=== PATIENT | male | born 1945 | race Caucasian/White ===

== ENCOUNTER 2021-05-27 16:41 | Inpatient (IN) ==
[2021-05-27] MEDS ORDERED: Albuterol/Ipratropium NEB.SOL (2.5/0.5 MG) 3 ML NEB.SOLN INH ONE ×2 (17:29→19:06)
[2021-05-27] MEDS ORDERED: Magnesium Sulfate 2 gm BAG 2 GM/50 ML BAG IVPB ONE (17:29)
[2021-05-27 17:44] LABS: ABS Lymphocytes 0.2 10^3/ul (1.0-4.8); ABS Monocytes 0.4 10^3/ul (0-0.8); ABS Neutrophils 13.3 10^3/ul (1.5-7.7); Hematocrit 45 % (42-52); Hemoglobin 14.8 g/dL (14.0-18.0); Lymphocyte % 1.7 %; Mean Corpuscular HGB Conc 33 g/dL (31-36); Mean Corpuscular Hemoglobin 32 pg (27-31); Mean Corpuscular Volume 96 fL (80-94); Mean Platelet Volume 8.1 fL (7.4-10.4); Platelet Count 217 10^3/uL (150-450); Red Blood Count 4.66 10^6 /uL (4.18-5.48); Red Cell Distribution Width 15 % (10-15); White Blood Count 13.9 10^3/uL (3.5-10.8)
[2021-05-27 18:03] LABS: Troponin I 0.02 ng/mL (<0.03)
[2021-05-27 18:05] LABS: C Reactive Protein 3.25 mg/L (<8.01); EGFR African American 96.1 (>60); EGFR Non-African American 79.4 (>60); Potassium 3.7 mmol/L (3.5-5.0)
[2021-05-27] MEDS ORDERED: Albuterol HFA INHALER 8 gm MDI INH PRN (22:01)
[2021-05-27] MEDS ORDERED: SPIRIVA Respimat (tiotropium) 2.5 mcg/inh Inhaler INH SCH (23:00)
[2021-05-27 23:04] LABS: Rapid COVID-19 Molecular Undetected (Undetected)
[2021-05-28] MEDS ORDERED: AZITHROMYCIN IVPB ONE (00:30)
[2021-05-28] MEDS ORDERED: NS 0.9% IVPB ONE (00:30)
[2021-05-28] MEDS ORDERED: SPIRIVA Respimat (tiotropium) 2.5 mcg/inh Inhaler INH SCH (01:00)
[2021-05-28] MEDS: Albuterol/Ipratropium NEB.SOL (2.5/0.5 MG) 3 ML NEB.SOLN INH SCH ×4 (01:24→19:01)
[2021-05-28] MEDS: Enoxaparin 40 MG/0.4 ML SYR SUBCUT SCH ×2 (01:25→22:33)
[2021-05-28 05:57] LABS: ABS Lymphocytes 0.3 10^3/ul (1.0-4.8); ABS Monocytes 0.6 10^3/ul (0-0.8); ABS Neutrophils 10.3 10^3/ul (1.5-7.7); Eosinophil % 0.2 %; Hematocrit 41 % (42-52); Hemoglobin 13.8 g/dL (14.0-18.0); Lymphocyte % 2.4 %; Mean Corpuscular HGB Conc 33 g/dL (31-36); Mean Corpuscular Hemoglobin 32 pg (27-31); Mean Corpuscular Volume 96 fL (80-94); Mean Platelet Volume 7.9 fL (7.4-10.4); Platelet Count 186 10^3/uL (150-450); Red Blood Count 4.32 10^6 /uL (4.18-5.48); Red Cell Distribution Width 15 % (10-15); White Blood Count 11.2 10^3/uL (3.5-10.8)
[2021-05-28 06:18] LABS: Calcium 8.5 mg/dL (8.6-10.3); EGFR African American 86.4 (>60); EGFR Non-African American 71.4 (>60); Magnesium 2.5 mg/dL (1.9-2.7); Potassium 3.6 mmol/L (3.5-5.0)
[2021-05-28] MEDS ORDERED: Potassium Chlor 20 meq TAB.ER PO ONE (08:08)
[2021-05-28] MEDS: methylPREDNISolone SOD 40 mg/ml 1 ml VIAL IV SCH ×2 (15:13→22:33)
[2021-05-28] MEDS ORDERED: Perflutren Lipid Microsphere 3 ML VIAL ONE (15:15)
[2021-05-28] MEDS: Mometasone/Formoter 200/5 MDI INH SCH (19:01)
[2021-05-29] MEDS ORDERED: cefTRIAXone 1 gm/50 mL NS BAG 1 GM/50 ML BAG IVPB SCH
[2021-05-29] MEDS: Albuterol/Ipratropium NEB.SOL (2.5/0.5 MG) 3 ML NEB.SOLN INH SCH ×2 (00:58→09:53)
[2021-05-29 07:05] LABS: Hematocrit 41 % (42-52); Hemoglobin 13.9 g/dL (14.0-18.0); Mean Corpuscular HGB Conc 34 g/dL (31-36); Mean Corpuscular Hemoglobin 33 pg (27-31); Mean Corpuscular Volume 96 fL (80-94); Mean Platelet Volume 8.2 fL (7.4-10.4); Platelet Count 197 10^3/uL (150-450); Red Blood Count 4.27 10^6 /uL (4.18-5.48); Red Cell Distribution Width 15 % (10-15); White Blood Count 10.4 10^3/uL (3.5-10.8)
[2021-05-29 07:21] LABS: Calcium 8.5 mg/dL (8.6-10.3); EGFR African American 101.1 (>60); EGFR Non-African American 83.6 (>60); Potassium 4.6 mmol/L (3.5-5.0)
[2021-05-29] MEDS: methylPREDNISolone SOD 40 mg/ml 1 ml VIAL IV SCH ×2 (08:36→15:00)
[2021-05-29] MEDS: Mometasone/Formoter 200/5 MDI INH SCH (09:49)
[2021-05-29] MEDS ORDERED: Albuterol/Ipratropium NEB.SOL (2.5/0.5 MG) 3 ML NEB.SOLN INH PRN (09:58)
[2021-05-29 12:01] VITALS: BP 134/67
== END 2021-05-29 16:20 | disposition other institution (70) | DRG 190 ==
LOC: ED 16:41 → EDHOLD 16:41 → SUATTDRO 21:53 → MED 21:54
PROVIDERS: ADMIT Student in an Organized Health Care Education/Training Program; ATTEND Internal Medicine

== ENCOUNTER 2021-12-08 04:52 | Inpatient (IN) ==
[2021-12-08] MEDS ORDERED: Dexamethasone IV 4 MG/ML 5 ML VIAL (20 MG) IVPB ONE (05:23)
[2021-12-08] MEDS ORDERED: Albuterol/Ipratropium NEB.SOL (2.5/0.5 MG) 3 ML NEB.SOLN INH ONE ×2 (05:23→08:56)
[2021-12-08 05:54] LABS: ABS Lymphocytes 0.4 10^3/ul (1.0-4.8); ABS Monocytes 1.4 10^3/ul (0-0.8); ABS Neutrophils 5.5 10^3/ul (1.5-7.7); Eosinophil % 0.1 %; Hematocrit 46 % (42-52); Hemoglobin 15.7 g/dL (14.0-18.0); Lymphocyte % 5.4 %; Mean Corpuscular HGB Conc 34 g/dL (31-36); Mean Corpuscular Hemoglobin 32 pg (27-31); Mean Corpuscular Volume 93 fL (80-94); Mean Platelet Volume 8.2 fL (7.4-10.4); Nucleated Red Blood Cells % 0.1; Platelet Count 134 10^3/uL (150-450); Red Cell Distribution Width 15 % (10-15); White Blood Count 7.3 10^3/uL (3.5-10.8)
[2021-12-08 06:38] LABS: Albumin/Globulin Ratio 2.7 (1-3); Calcium 8.5 mg/dL (8.6-10.3); Globulin 1.5 g/dL (2-4); Total Bilirubin 0.4 mg/dL (0.2-1.0); Total Protein 5.5 g/dL (6.4-8.9); eGFR CKD-EPI 86.7 (>60)
[2021-12-08] MEDS ORDERED: Albuterol 0.5% CONC CONTINUOUS NEB.SOL 5 mg/ml 20 ml BOT INH ONE (06:44)
[2021-12-08 07:18] LABS: High Sensitivity Troponin 1 Hr 10 pg/mL (<20)
[2021-12-08] MEDS ORDERED: cefTRIAXone 1 gm/50 mL D5W 1 GM/50 ML BAG IV ONE (07:46)
[2021-12-08 08:21] LABS: Venous Bicarbonate HCO3 26.9 mmol/L (24-28)
[2021-12-08] MEDS ORDERED: Azelastine/Fluticasone 137-50 MCG BTL (NF) BOTH NARES SCH (10:00)
[2021-12-08] MEDS ORDERED: Multivitamins/Minera Areds(NF) CAP PO SCH (10:00)
[2021-12-08] MEDS: Enoxaparin 40 MG/0.4 ML SYR SUBCUT SCH (11:05)
[2021-12-08] MEDS: methylPREDNISolone SOD 40 mg/ml 1 ml VIAL IV SCH ×2 (11:06→17:54)
[2021-12-08] MEDS: Albuterol 2.5mg/3 ml (0.083%) NEB.SOLN INH PRN (13:31)
[2021-12-08] MEDS: Albuterol/Ipratropium NEB.SOL (2.5/0.5 MG) 3 ML NEB.SOLN INH SCH ×3 (14:20→22:20)
[2021-12-08] MEDS: Budesonide NEB 0.5 MG/2 ML NEB.SOLN INH SCH (19:44)
[2021-12-08] MEDS: NF:Azelastine/Fluticasone 137-50 MCG BTL (NF) BOTH NARES SCH (22:29)
[2021-12-08 23:29] LABS: Urine Appearance Cloudy; Urine Bilirubin Negative (Negative); Urine Blood Negative (Negative); Urine Color Yellow; Urine Glucose 3+(>=500 mg/dL) (Negative); Urine Ketones Trace (Negative); Urine Nitrite Negative (Negative); Urine Protein Negative (Negative); Urine Specific Gravity 1.021 (1.002-1.030); Urine Urobilinogen Negative (Negative)
[2021-12-09] MEDS: methylPREDNISolone SOD 40 mg/ml 1 ml VIAL IV SCH (01:43)
[2021-12-09 07:11] LABS: ABS Lymphocytes 0.3 10^3/ul (1.0-4.8); ABS Monocytes 0.4 10^3/ul (0-0.8); ABS Neutrophils 4.8 10^3/ul (1.5-7.7); Hematocrit 42 % (42-52); Hemoglobin 14.2 g/dL (14.0-18.0); Lymphocyte % 5.5 %; Mean Corpuscular HGB Conc 34 g/dL (31-36); Mean Corpuscular Hemoglobin 32 pg (27-31); Mean Corpuscular Volume 93 fL (80-94); Mean Platelet Volume 8.7 fL (7.4-10.4); Nucleated Red Blood Cells % 0.1; Platelet Count 125 10^3/uL (150-450); Red Blood Count 4.47 10^6 /uL (4.18-5.48); Red Cell Distribution Width 15 % (10-15); White Blood Count 5.5 10^3/uL (3.5-10.8)
[2021-12-09 07:22] LABS: Anion Gap 7 mmol/L (2-11); Blood Urea Nitrogen 28 mg/dL (6-24); CO2 Carbon Dioxide 28 mmol/L (22-32); Calcium 8.6 mg/dL (8.6-10.3); Chloride 105 mmol/L (101-111); Glucose 130 mg/dL (70-100); Magnesium 2.1 mg/dL (1.9-2.7); Potassium 4.3 mmol/L (3.5-5.0); Sodium 140 mmol/L (135-145)
[2021-12-09] MEDS: Budesonide NEB 0.5 MG/2 ML NEB.SOLN INH SCH ×2 (08:11→20:22)
[2021-12-09] MEDS: Albuterol/Ipratropium NEB.SOL (2.5/0.5 MG) 3 ML NEB.SOLN INH SCH ×3 (08:12→15:53)
[2021-12-09] MEDS: cefTRIAXone 1 gm/50 mL D5W 1 GM/50 ML BAG IV SCH (08:28)
[2021-12-09] MEDS: Enoxaparin 40 MG/0.4 ML SYR SUBCUT SCH (08:37)
[2021-12-09] MEDS: NF:Azelastine/Fluticasone 137-50 MCG BTL (NF) BOTH NARES SCH ×2 (13:17→20:09)
[2021-12-09] MEDS: NF: Multivitamins/Minera Areds(NF) CAP PO SCH (13:17)
[2021-12-09] MEDS: Albuterol 2.5mg/3 ml (0.083%) NEB.SOLN INH PRN (15:49)
[2021-12-09] MEDS: Tiotropium Brom/Olodaterol MDI INH SCH (15:49)
[2021-12-09] MEDS ORDERED: SPIRIVA Respimat (tiotropium) 2.5 mcg/inh Inhaler INH SCH (16:00)
[2021-12-09 16:05] LABS: Vitamin D Total 25(OH) < 7.0 ng/mL (20-50)
[2021-12-10] MEDS: Budesonide NEB 0.5 MG/2 ML NEB.SOLN INH SCH (07:45)
[2021-12-10] MEDS: Tiotropium Brom/Olodaterol MDI INH SCH (07:48)
[2021-12-10] MEDS: Enoxaparin 40 MG/0.4 ML SYR SUBCUT SCH (08:34)
[2021-12-10] MEDS: cefTRIAXone 1 gm/50 mL D5W 1 GM/50 ML BAG IV SCH (08:35)
[2021-12-10] MEDS: NF: Multivitamins/Minera Areds(NF) CAP PO SCH (08:59)
[2021-12-10 15:19] VITALS: BP 109/47
== END 2021-12-10 16:50 | disposition home or self-care (01) | DRG 193 ==
LOC: ED 04:52 → EDHOLD 09:10 → MED 15:48
PROVIDERS: ADMIT Internal Medicine; ATTEND Internal Medicine

== ENCOUNTER 2021-12-14 08:53 | Inpatient (IN) ==
[2021-12-14] MEDS ORDERED: methylPREDNISolone 125 mg 2 ML VIAL IV ONE (09:32)
[2021-12-14] MEDS ORDERED: Magnesium Sulfate 2 gm BAG 2 GM/50 ML BAG IVPB ONE (09:32)
[2021-12-14] MEDS ORDERED: Albuterol/Ipratropium NEB.SOL (2.5/0.5 MG) 3 ML NEB.SOLN INH ONE ×2 (09:32)
[2021-12-14 09:55] LABS: ABS Eosinophils 0.1 10^3/ul (0-0.6); ABS Monocytes 1.2 10^3/ul (0-0.8); Eosinophil % 0.7 %; Hematocrit 49 % (42-52); Hemoglobin 16.4 g/dL (14.0-18.0); Mean Corpuscular HGB Conc 33 g/dL (31-36); Mean Corpuscular Hemoglobin 31 pg (27-31); Mean Corpuscular Volume 93 fL (80-94); Platelet Count 202 10^3/uL (150-450); Red Blood Count 5.27 10^6 /uL (4.18-5.48); Red Cell Distribution Width 14 % (10-15); White Blood Count 9.3 10^3/uL (3.5-10.8)
[2021-12-14 10:36] LABS: Albumin 4.2 g/dL (3.2-5.2); Albumin/Globulin Ratio 2.1 (1-3); Magnesium 2.5 mg/dL (1.9-2.7); Total Bilirubin 0.6 mg/dL (0.2-1.0); Total Protein 6.2 g/dL (6.4-8.9); eGFR CKD-EPI 93.7 (>60)
[2021-12-14 11:17] LABS: High Sensitivity Troponin 1 Hr 9 pg/mL (<20)
[2021-12-14] MEDS ORDERED: Albuterol HFA INHALER 8 gm MDI INH SCH (12:00)
[2021-12-14] MEDS ORDERED: Cefpodoxime 200 mg (NF) PO SCH (13:35)
[2021-12-14] MEDS: cefTRIAXone 1 gm/50 mL D5W 1 GM/50 ML BAG IV SCH (14:22)
[2021-12-14] MEDS: Azithromycin 500 mg/250 ml NS 500 MG/250 ML BAG IVPB SCH (17:13)
[2021-12-14] MEDS: Albuterol HFA INHALER 8 gm MDI INH SCH ×3 (17:13→23:52)
[2021-12-14 18:20] LABS: Urine Appearance Clear; Urine Bilirubin Negative (Negative); Urine Blood Negative (Negative); Urine Color Yellow; Urine Glucose 1+(50 mg/dL) (Negative); Urine Ketones Negative (Negative); Urine Nitrite Negative (Negative); Urine Protein Negative (Negative); Urine Specific Gravity 1.025 (1.002-1.030); Urine Urobilinogen Negative (Negative)
[2021-12-14] MEDS: Budesonide NEB 0.5 MG/2 ML NEB.SOLN INH SCH (20:28)
[2021-12-14] MEDS: methylPREDNISolone SOD 40 mg/ml 1 ml VIAL IV SCH (20:56)
[2021-12-14] MEDS ORDERED: Azelastine/Fluticasone 137-50 MCG BTL (NF) BOTH NARES SCH (21:00)
[2021-12-14] MEDS: Fluticasone NASAL SPRAY 50MCG 16 gm SPRAY BTL BOTH NARES SCH (21:03)
[2021-12-15] MEDS: Albuterol HFA INHALER 8 gm MDI INH SCH ×6 (03:20→23:42)
[2021-12-15 05:52] LABS: ABS Lymphocytes 0.4 10^3/ul (1.0-4.8); ABS Monocytes 0.4 10^3/ul (0-0.8); ABS Neutrophils 8.1 10^3/ul (1.5-7.7); Hematocrit 45 % (42-52); Hemoglobin 15.1 g/dL (14.0-18.0); Lymphocyte % 4.7 %; Mean Corpuscular HGB Conc 34 g/dL (31-36); Mean Corpuscular Hemoglobin 31 pg (27-31); Mean Corpuscular Volume 93 fL (80-94); Mean Platelet Volume 7.9 fL (7.4-10.4); Platelet Count 191 10^3/uL (150-450); Red Blood Count 4.85 10^6 /uL (4.18-5.48); Red Cell Distribution Width 15 % (10-15); White Blood Count 8.9 10^3/uL (3.5-10.8)
[2021-12-15 06:18] LABS: Calcium 8.3 mg/dL (8.6-10.3); Potassium 4.6 mmol/L (3.5-5.0); eGFR CKD-EPI 92.6 (>60)
[2021-12-15] MEDS: Budesonide NEB 0.5 MG/2 ML NEB.SOLN INH SCH ×2 (07:20→20:00)
[2021-12-15] MEDS: Tiotropium Brom/Olodaterol MDI INH SCH (07:22)
[2021-12-15] MEDS ORDERED: Multivitamins/Minera Areds(NF) CAP PO SCH (09:00)
[2021-12-15] MEDS: methylPREDNISolone SOD 40 mg/ml 1 ml VIAL IV SCH ×2 (09:16→20:21)
[2021-12-15] MEDS: Multivitamins/Minerals TAB PO SCH (09:17)
[2021-12-15] MEDS: Fluticasone NASAL SPRAY 50MCG 16 gm SPRAY BTL BOTH NARES SCH (09:17)
[2021-12-15] MEDS: cefTRIAXone 1 gm/50 mL D5W 1 GM/50 ML BAG IV SCH (14:47)
[2021-12-15] MEDS: Azithromycin 500 mg/250 ml NS 500 MG/250 ML BAG IVPB SCH (16:21)
[2021-12-16] MEDS: Albuterol HFA INHALER 8 gm MDI INH SCH ×5 (03:35→20:23)
[2021-12-16 06:27] LABS: ABS Lymphocytes 0.4 10^3/ul (1.0-4.8); ABS Monocytes 0.8 10^3/ul (0-0.8); ABS Neutrophils 12.6 10^3/ul (1.5-7.7); Hematocrit 42 % (42-52); Lymphocyte % 2.9 %; Mean Corpuscular HGB Conc 34 g/dL (31-36); Mean Corpuscular Hemoglobin 31 pg (27-31); Mean Corpuscular Volume 93 fL (80-94); Mean Platelet Volume 7.8 fL (7.4-10.4); Nucleated Red Blood Cells % 0.1; Platelet Count 216 10^3/uL (150-450); Red Blood Count 4.49 10^6 /uL (4.18-5.48); Red Cell Distribution Width 14 % (10-15); White Blood Count 13.8 10^3/uL (3.5-10.8)
[2021-12-16 06:58] LABS: Calcium 8.5 mg/dL (8.6-10.3); Magnesium 2.2 mg/dL (1.9-2.7); Potassium 4.8 mmol/L (3.5-5.0); eGFR CKD-EPI 94.5 (>60)
[2021-12-16] MEDS: Budesonide NEB 0.5 MG/2 ML NEB.SOLN INH SCH ×2 (07:32→20:19)
[2021-12-16] MEDS: Tiotropium Brom/Olodaterol MDI INH SCH (07:39)
[2021-12-16] MEDS: Multivitamins/Minerals TAB PO SCH (09:24)
[2021-12-16] MEDS: methylPREDNISolone SOD 40 mg/ml 1 ml VIAL IV SCH (09:28)
[2021-12-16] MEDS: Fluticasone NASAL SPRAY 50MCG 16 gm SPRAY BTL BOTH NARES SCH (09:35)
[2021-12-16] MEDS: cefTRIAXone 1 gm/50 mL D5W 1 GM/50 ML BAG IV SCH (15:24)
[2021-12-16] MEDS ORDERED: Iohexol 350 (CONTRAST) 500 ML MDV IV ONE (17:50)
[2021-12-16] MEDS ORDERED: methylPREDNISolone SOD 40 mg/ml 1 ml VIAL IV SCH (21:00)
[2021-12-16] MEDS: Enoxaparin 40 MG/0.4 ML SYR SUBCUT SCH (21:05)
[2021-12-17] MEDS: Albuterol HFA INHALER 8 gm MDI INH SCH ×7 (00:37→22:25)
[2021-12-17 05:06] LABS: ABS Lymphocytes 0.3 10^3/ul (1.0-4.8); ABS Monocytes 0.8 10^3/ul (0-0.8); ABS Neutrophils 10.5 10^3/ul (1.5-7.7); Hematocrit 44 % (42-52); Hemoglobin 14.5 g/dL (14.0-18.0); Mean Corpuscular HGB Conc 33 g/dL (31-36); Mean Corpuscular Hemoglobin 31 pg (27-31); Mean Corpuscular Volume 94 fL (80-94); Mean Platelet Volume 7.9 fL (7.4-10.4); Nucleated Red Blood Cells % 0.1; Platelet Count 191 10^3/uL (150-450); Red Blood Count 4.65 10^6 /uL (4.18-5.48); Red Cell Distribution Width 15 % (10-15); White Blood Count 11.7 10^3/uL (3.5-10.8)
[2021-12-17 05:08] LABS: Calcium 8.3 mg/dL (8.6-10.3); Potassium 4.7 mmol/L (3.5-5.0); eGFR CKD-EPI 95.3 (>60)
[2021-12-17] MEDS: Budesonide NEB 0.5 MG/2 ML NEB.SOLN INH SCH ×2 (07:20→19:36)
[2021-12-17] MEDS: Tiotropium Brom/Olodaterol MDI INH SCH (07:24)
[2021-12-17] MEDS: Fluticasone NASAL SPRAY 50MCG 16 gm SPRAY BTL BOTH NARES SCH (10:36)
[2021-12-17] MEDS: Multivitamins/Minerals TAB PO SCH (10:36)
[2021-12-17] MEDS: cefTRIAXone 1 gm/50 mL D5W 1 GM/50 ML BAG IV SCH (14:25)
[2021-12-17] MEDS: Enoxaparin 40 MG/0.4 ML SYR SUBCUT SCH (20:47)
[2021-12-18] MEDS: Albuterol HFA INHALER 8 gm MDI INH SCH ×4 (02:56→19:48)
[2021-12-18] MEDS: Tiotropium Brom/Olodaterol MDI INH SCH (07:28)
[2021-12-18] MEDS: Budesonide NEB 0.5 MG/2 ML NEB.SOLN INH SCH ×2 (07:28→19:49)
[2021-12-18] MEDS: Multivitamins/Minerals TAB PO SCH (10:38)
[2021-12-18] MEDS: Fluticasone NASAL SPRAY 50MCG 16 gm SPRAY BTL BOTH NARES SCH (11:23)
[2021-12-18] MEDS: cefTRIAXone 1 gm/50 mL D5W 1 GM/50 ML BAG IV SCH (15:34)
[2021-12-18 15:58] VITALS: BP 143/71
== END 2021-12-18 20:06 | disposition home or self-care (01) | DRG 190 ==
LOC: ED 08:53 → EDHOLD 08:53 → OBSVTOIN 11:50 → SUATTDRO 11:50 → ICU 15:12 → MED 12-15 14:28
PROVIDERS: ADMIT Hospitalist; ATTEND Hospitalist

== ENCOUNTER 2024-01-20 15:23 | Inpatient (IN) ==
[2024-01-20] MEDS: Albuterol HFA INHALER 8 gm MDI INH ONE (15:47)
[2024-01-20] MEDS: methylPREDNISolone SOD SUCC 125 mg 2 ML VIAL IV ONE (16:22)
[2024-01-20] MEDS: cefTRIAXone 1 gm/50 mL D5W 1 GM/50 ML BAG IV ONE (16:23)
[2024-01-20 16:52] LABS: ABS Lymphocytes 0.2 10^3/uL (1.0-4.8); ABS Monocytes 0.8 10^3/uL (0.0-1.1); Eosinophil % 0.1 %; Hematocrit 41.2 % (38-53); Hemoglobin 13.7 g/dL (13.2-16.3); Lymphocyte % 1.8 %; Mean Corpuscular Hemoglobin 31.6 pg (27-33); Mean Corpuscular Hgb Conc 33.2 g/dL (31-36); Mean Corpuscular Volume 95.1 fL (80-97); Mean Platelet Volume 8.1 fL (7.5-11.2); Platelet Count 190 10^3/uL (150-450); Red Blood Count 4.34 10^6/uL (4.06-5.63); Red Cell Distribution Width 14.7 % (12-17)
[2024-01-20] MEDS: Albuterol/Ipratropium NEB.SOL (2.5/0.5 MG) 3 ML NEB.SOLN INH SCH ×2 (16:54→21:53)
[2024-01-20] MEDS: Azithromycin 500 mg/250 ml NS 500 MG/250 ML BAG IVPB ONE (16:56)
[2024-01-20 17:06] LABS: High Sensitivity Troponin 1 Hr 10 pg/mL (<20)
[2024-01-20 17:28] LABS: Albumin 3.8 g/dL (3.2-5.2); Albumin/Globulin Ratio 1.8 (1-3); Calcium 9.4 mg/dL (8.6-10.3); Creatinine, Serum 0.92 mg/dL (0.67-1.17); Globulin 2.1 g/dL (2-4); Potassium 4.4 mmol/L (3.5-5.0); Total Bilirubin 0.3 mg/dL (0.2-1.0); Total Protein 5.9 g/dL (6.4-8.9); eGFR CKD-EPI 85.7 (>60)
[2024-01-20] MEDS: Acetylcysteine INH SOL (RT) 200 MG/ML 4 ML VIAL INH SCH (21:53)
[2024-01-20] MEDS: Enoxaparin 40 MG/0.4 ML SYR SUBCUT SCH (22:04)
[2024-01-20] MEDS: methylPREDNISolone SOD SUCC 40 mg/ml 1 ml VIAL IV SCH (22:04)
[2024-01-21 06:22] LABS: ABS Lymphocytes 0.2 10^3/uL (1.0-4.8); ABS Monocytes 0.2 10^3/uL (0.0-1.1); Hematocrit 36.8 % (38-53); Hemoglobin 12.5 g/dL (13.2-16.3); Lymphocyte % 1.7 %; Mean Corpuscular Hemoglobin 32.2 pg (27-33); Mean Corpuscular Volume 94.8 fL (80-97); Mean Platelet Volume 7.7 fL (7.5-11.2); Platelet Count 169 10^3/uL (150-450); Red Blood Count 3.88 10^6/uL (4.06-5.63); Red Cell Distribution Width 14.3 % (12-17); White Blood Count 10.4 10^3/uL (3.6-10.2)
[2024-01-21 06:42] LABS: Calcium 8.4 mg/dL (8.6-10.3); Creatinine, Serum 0.96 mg/dL (0.67-1.17); Potassium 4.3 mmol/L (3.5-5.0); eGFR CKD-EPI 81.4 (>60)
[2024-01-21] MEDS ORDERED: Dextrose 50% Syringe 50 ml 25 GM/50 ML SYRINGE IV PUSH PRN (07:05)
[2024-01-21] MEDS: FLUTICAS/UMECLI/VILANT 200-62.5-25 MDI (NF) INH SCH (07:57)
[2024-01-21] MEDS ORDERED: Alendronate 70 mg TAB (NF) PO SCH (09:00)
[2024-01-21] MEDS: Potassium Chloride LIQUID 20 MEQ/15 ML LIQUID PO SCH (09:24)
[2024-01-21] MEDS: Albuterol/Ipratropium NEB.SOL (2.5/0.5 MG) 3 ML NEB.SOLN INH SCH (12:00)
[2024-01-21] MEDS: Saline NASAL SPRAY 0.65% BTL BOTH NARES PRN (21:33)
[2024-01-22] MEDS ORDERED: Senna TAB 8.6 mg TAB PO PRN (13:52)
[2024-01-22] MEDS: Albuterol/Ipratropium NEB.SOL (2.5/0.5 MG) 3 ML NEB.SOLN INH SCH (20:13)
[2024-01-23 10:39] VITALS: BP 115/65
== END 2024-01-23 15:10 | disposition home or self-care (01) | DRG 191 ==
LOC: ED 15:23 → EDHOLD 15:23 → MED 18:48
PROVIDERS: ADMIT Internal Medicine; ATTEND Internal Medicine

== ENCOUNTER 2024-01-25 20:46 | Inpatient (IN) ==
[2024-01-25 21:42] LABS: Hemoglobin 15.2 g/dL (13.2-16.3); Mean Corpuscular Hemoglobin 31.3 pg (27-33); Mean Corpuscular Volume 95.1 fL (80-97); Mean Platelet Volume 7.8 fL (7.5-11.2); Platelet Count 213 10^3/uL (150-450); Red Blood Count 4.83 10^6/uL (4.06-5.63); Red Cell Distribution Width 14.5 % (12-17); White Blood Count 15.4 10^3/uL (3.6-10.2)
[2024-01-25] MEDS: methylPREDNISolone SOD SUCC 125 mg 2 ML VIAL IV ONE (21:44)
[2024-01-25] MEDS: Albuterol 2.5mg/3 ml (0.083%) NEB.SOLN INH ONE ×2 (21:44→22:05)
[2024-01-25 21:51] LABS: INR 0.93 (0.83-1.13)
[2024-01-25 22:07] LABS: High Sens Troponin Baseline 12 pg/mL (<20)
[2024-01-25 22:13] LABS: ABS Lymphocytes 0.2 10^3/uL (1.0-4.8); ABS Monocytes 1.2 10^3/uL (0.0-1.1); ABS Neutrophils 13.9 10^3/uL (1.5-7.6); ABS Nucleated RBC 0.01 10^3/ul; Lymphocyte % 1.6 %; Nucleated Red Blood Cells % 0.1 %/100WBC (0.0-0.8)
[2024-01-25] MEDS: Iodixanol (CONTRAST) 320 MG/ML 100 ML SDV IV ONE (22:40)
[2024-01-25 22:49] LABS: ALT 18 U/L (7-52); Albumin 3.8 g/dL (3.2-5.2); Albumin/Globulin Ratio 1.4 (1-3); Alkaline Phosphatase 50 U/L (35-149); Anion Gap 5 mmol/L (2-16); Blood Urea Nitrogen 31 mg/dL (6-24); C Reactive Protein 7.73 mg/L (<8.01); CO2 Carbon Dioxide 36 mmol/L (22-32); Calcium 9.2 mg/dL (8.6-10.3); Chloride 98 mmol/L (101-111); Creatinine, Serum 0.83 mg/dL (0.67-1.17); Globulin 2.7 g/dL (2-4); Glucose 90 mg/dL (70-100); Sodium 139 mmol/L (135-145); Total Bilirubin 0.3 mg/dL (0.2-1.0); Total Protein 6.5 g/dL (6.4-8.9); eGFR CKD-EPI 90.1 (>60)
[2024-01-25 23:19] LABS: Potassium Redraw 4.7 mmol/L (3.5-5.0)
[2024-01-26] MEDS: cefTRIAXone 1 gm/50 mL D5W 1 GM/50 ML BAG IV ONE (00:37)
[2024-01-26] MEDS: Azithromycin 500 mg/250 ml NS 500 MG/250 ML BAG IVPB ONE (00:38)
[2024-01-26] MEDS ORDERED: Senna TAB 8.6 mg TAB PO PRN (01:05)
[2024-01-26] MEDS ORDERED: Ondansetron 4 mg VIAL 2 MG/ML 2 ml VIAL IV PRN (01:05)
[2024-01-26] MEDS ORDERED: Polyethylene Glycol 3350 17 GM PACKET PO PRN (01:05)
[2024-01-26 01:28] LABS: Urine Specific Gravity >1.050 (1.002-1.030)
[2024-01-26 01:31] LABS: Urine Appearance Clear; Urine Bacteria Absent /HPF (Absent); Urine Bilirubin Negative (Negative); Urine Blood Negative (Negative); Urine Color Light-Yellow; Urine Glucose Trace (Negative); Urine Ketones Negative (Negative); Urine Nitrite Negative (Negative); Urine Protein 1+ (>=30 mg/dL) (Negative); Urine Red Blood Cell Absent /HPF (0-Trace); Urine Squamous Epithelial Cell Present /HPF (Absent); Urine Urobilinogen Negative (Negative); Urine White Blood Cell Absent /HPF (0-Trace)
[2024-01-26] MEDS ORDERED: Acetylcysteine INH SOL (RT) 200 MG/ML 4 ML VIAL INH PRN (03:04)
[2024-01-26] MEDS: Albuterol/Ipratropium NEB.SOL (2.5/0.5 MG) 3 ML NEB.SOLN INH PRN (05:34)
[2024-01-26] MEDS: FLUTICAS/UMECLI/VILANT 200-62.5-25 MDI (NF) INH SCH (09:45)
[2024-01-26] MEDS: Cefepime 2 GM in Dextrose 2 GM/50 ML BAG IV SCH (10:57)
[2024-01-26] MEDS: Acetylcysteine INHALATION SOL 200 MG/ML NEB.SOLN 10 ML INH SCH (11:43)
[2024-01-26] MEDS: Albuterol/Ipratropium NEB.SOL (2.5/0.5 MG) 3 ML NEB.SOLN INH SCH (11:43)
[2024-01-26] MEDS ORDERED: Acetylcysteine INHALATION SOL 200 MG/ML NEB.SOLN 10 ML INH SCH (12:00)
[2024-01-26] MEDS: Alendronate 70 mg TAB (NF) PO SCH (12:54)
[2024-01-26] MEDS: methylPREDNISolone SOD SUCC 40 mg/ml 1 ml VIAL IV SCH (16:41)
[2024-01-27] MEDS: Azithromycin 500 mg/250 ml NS 500 MG/250 ML BAG IVPB SCH (00:02)
[2024-01-27] MEDS: Albuterol/Ipratropium NEB.SOL (2.5/0.5 MG) 3 ML NEB.SOLN INH SCH ×2 (01:38→17:08)
[2024-01-27 05:49] LABS: ABS Lymphocytes 0.3 10^3/uL (1.0-4.8); ABS Monocytes 1.1 10^3/uL (0.0-1.1); ABS Neutrophils 17.8 10^3/uL (1.5-7.6); ABS Nucleated RBC 0.01 10^3/ul; Hemoglobin 12.8 g/dL (13.2-16.3); Lymphocyte % 1.7 %; Mean Corpuscular Hemoglobin 31.1 pg (27-33); Mean Corpuscular Hgb Conc 32.9 g/dL (31-36); Mean Corpuscular Volume 94.7 fL (80-97); Mean Platelet Volume 7.5 fL (7.5-11.2); Platelet Count 194 10^3/uL (150-450); Red Blood Count 4.12 10^6/uL (4.06-5.63); Red Cell Distribution Width 14.6 % (12-17); White Blood Count 19.3 10^3/uL (3.6-10.2)
[2024-01-27 06:16] LABS: Calcium 8.4 mg/dL (8.6-10.3); Creatinine, Serum 0.8 mg/dL (0.67-1.17); Magnesium 2.3 mg/dL (1.9-2.7); Potassium 5.3 mmol/L (3.5-5.0); eGFR CKD-EPI 91.1 (>60)
[2024-01-27 07:12] LABS: PCO2 Arterial 57 mmHg (35-45); PO2 Arterial 82 mmHg (80-100)
[2024-01-27] MEDS: Acetylcysteine INHALATION SOL 200 MG/ML NEB.SOLN 10 ML INH SCH (07:14)
[2024-01-27] MEDS ORDERED: Morphine ORAL.SOLN 10 mg 2 mg/ml UDC 5 ml (10 mg) PO PRN (10:29)
[2024-01-27] MEDS: Saline NASAL SPRAY 0.65% BTL BOTH NARES SCH (13:45)
[2024-01-28 06:26] LABS: Hematocrit 37.2 % (38-53); Hemoglobin 12.5 g/dL (13.2-16.3); Mean Corpuscular Hemoglobin 31.8 pg (27-33); Mean Corpuscular Hgb Conc 33.6 g/dL (31-36); Mean Corpuscular Volume 94.6 fL (80-97); Mean Platelet Volume 7.4 fL (7.5-11.2); Platelet Count 184 10^3/uL (150-450); Red Blood Count 3.93 10^6/uL (4.06-5.63); Red Cell Distribution Width 14.2 % (12-17); White Blood Count 19.7 10^3/uL (3.6-10.2)
[2024-01-28 06:52] LABS: Calcium 8.5 mg/dL (8.6-10.3); Creatinine, Serum 0.81 mg/dL (0.67-1.17); Magnesium 2.1 mg/dL (1.9-2.7); Potassium 4.9 mmol/L (3.5-5.0); eGFR CKD-EPI 90.8 (>60)
[2024-01-28 08:24] LABS: ABS Lymphocytes 0.2 10^3/uL (1.0-4.8); ABS Monocytes 1.2 10^3/uL (0.0-1.1); ABS Neutrophils 18.3 10^3/uL (1.5-7.6); Lymphocyte % 1.1 %
[2024-01-28] MEDS ORDERED: methylPREDNISolone SOD SUCC 40 mg/ml 1 ml VIAL IV SCH (10:00)
[2024-01-28] MEDS: Albuterol/Ipratropium NEB.SOL (2.5/0.5 MG) 3 ML NEB.SOLN INH SCH ×2 (12:19→19:35)
[2024-01-28] MEDS: methylPREDNISolone SOD SUCC 40 mg/ml 1 ml VIAL IV SCH (14:46)
[2024-01-29 10:00] VITALS: BP 135/61
== END 2024-01-29 14:40 | disposition home or self-care (01) | DRG 190 ==
LOC: EDHOLD 20:46 → ED 20:46 → SUATTDRO 01-26 01:05 → MED 01-26 07:43
PROVIDERS: ADMIT Internal Medicine; ATTEND Internal Medicine

== ENCOUNTER 2024-03-24 13:56 | Observation (INO) ==
[2024-03-24 14:33] LABS: Hematocrit 39.7 % (38-53); Hemoglobin 13.1 g/dL (13.2-16.3); Mean Corpuscular Hemoglobin 31.8 pg (27-33); Mean Corpuscular Hgb Conc 32.9 g/dL (31-36); Mean Corpuscular Volume 96.9 fL (80-97); Mean Platelet Volume 7.6 fL (7.5-11.2); Platelet Count 205 10^3/uL (150-450); Red Cell Distribution Width 15.6 % (12-17); White Blood Count 12.6 10^3/uL (3.6-10.2)
[2024-03-24] MEDS: Albuterol/Ipratropium NEB.SOL (2.5/0.5 MG) 3 ML NEB.SOLN INH ONE ×3 (14:43→14:44)
[2024-03-24 14:44] LABS: Activated Partial Thrombo Time 27.5 seconds (26.0-38.0); INR 1.07 (0.83-1.13)
[2024-03-24] MEDS: methylPREDNISolone SOD SUCC 125 mg 2 ML VIAL IV ONE (14:53)
[2024-03-24 14:57] LABS: ABS Lymphocytes 0.5 10^3/uL (1.0-4.8); ABS Monocytes 0.8 10^3/uL (0.0-1.1); ABS Neutrophils 11.2 10^3/uL (1.5-7.6); ABS Nucleated RBC 0.01 10^3/ul; Eosinophil % 0.3 %; Lymphocyte % 3.7 %; Nucleated Red Blood Cells % 0.1 %/100WBC (0.0-0.8)
[2024-03-24 14:59] LABS: Albumin 3.7 g/dL (3.2-5.2); Albumin/Globulin Ratio 1.7 (1-3); C Reactive Protein 1.46 mg/L (<8.01); Creatinine, Serum 1.04 mg/dL (0.67-1.17); Globulin 2.2 g/dL (2-4); Potassium 4.2 mmol/L (3.5-5.0); Total Bilirubin 0.3 mg/dL (0.2-1.0); Total Protein 5.9 g/dL (6.4-8.9)
[2024-03-24] MEDS: Lactated Ringers 1000 ml BAG 1,000 ML IV ONE (15:27)
[2024-03-24 15:51] LABS: PCO2 Arterial 50 mmHg (35-45); PO2 Arterial 149 mmHg (80-100)
[2024-03-24 16:01] LABS: High Sensitivity Troponin 1 Hr 12 pg/mL (<20)
[2024-03-24] MEDS: Iohexol 350 (CONTRAST) 500 ML MDV IV ONE (16:40)
[2024-03-24 20:43] LABS: Urine Appearance Clear; Urine Bilirubin Negative (Negative); Urine Blood Negative (Negative); Urine Color Light-Yellow; Urine Glucose Negative (Negative); Urine Ketones Negative (Negative); Urine Nitrite Negative (Negative); Urine Protein Trace (Negative); Urine Specific Gravity >1.050 (1.002-1.030); Urine Urobilinogen Negative (Negative); Urine pH 7.5 (5.0-8.0)
[2024-03-24] MEDS: Albuterol/Ipratropium NEB.SOL (2.5/0.5 MG) 3 ML NEB.SOLN INH SCH (22:48)
[2024-03-24] MEDS ORDERED: Albuterol 2.5mg/3 ml (0.083%) NEB.SOLN INH PRN (23:30)
[2024-03-24] MEDS: Albuterol 2.5mg/3 ml (0.083%) NEB.SOLN INH SCH (23:31)
[2024-03-25] MEDS ORDERED: Albuterol/Ipratropium NEB.SOL (2.5/0.5 MG) 3 ML NEB.SOLN INH PRN ×2 (00:05→09:50)
[2024-03-25] MEDS: Acetylcysteine INHALATION SOL 200 MG/ML NEB.SOLN 10 ML INH SCH (01:24)
[2024-03-25] MEDS: Cefepime 2 GM in Dextrose 2 GM/50 ML BAG IV SCH ×2 (02:02→02:46)
[2024-03-25] MEDS: methylPREDNISolone SOD SUCC 40 mg/ml 1 ml VIAL IV SCH ×2 (02:47→21:16)
[2024-03-25] MEDS: Lactated Ringers 1000 ml BAG 1,000 ML IV SCH (02:47)
[2024-03-25 06:53] LABS: ABS Lymphocytes 0.2 10^3/uL (1.0-4.8); ABS Monocytes 0.5 10^3/uL (0.0-1.1); ABS Neutrophils 12.3 10^3/uL (1.5-7.6); Hematocrit 33.8 % (38-53); Hemoglobin 11.2 g/dL (13.2-16.3); Lymphocyte % 1.9 %; Mean Corpuscular Hemoglobin 32.1 pg (27-33); Mean Corpuscular Hgb Conc 33.3 g/dL (31-36); Mean Corpuscular Volume 96.5 fL (80-97); Mean Platelet Volume 7.8 fL (7.5-11.2); Platelet Count 177 10^3/uL (150-450); Red Cell Distribution Width 15.2 % (12-17)
[2024-03-25 07:01] LABS: Creatinine, Serum 0.91 mg/dL (0.67-1.17); Potassium 4.3 mmol/L (3.5-5.0); eGFR CKD-EPI 86.8 (>60)
[2024-03-25] MEDS: FLUTICAS/UMECLI/VILANT 200-62.5-25 MDI (NF) INH SCH (08:16)
[2024-03-25] MEDS ORDERED: FLUTICAS/UMECLI/VILANT 200-62.5-25 MDI (NF) INH SCH (09:00)
[2024-03-25] MEDS ORDERED: Potassium Chlor 20 meq TAB.ER PO SCH (09:00)
[2024-03-25] MEDS ORDERED: Acetylcysteine INHALATION SOL 200 MG/ML NEB.SOLN 10 ML INH PRN (10:16)
[2024-03-25] MEDS: Azithromycin 500 mg/250 ml NS 500 MG/250 ML BAG IVPB SCH (12:49)
[2024-03-25] MEDS: Albuterol/Ipratropium NEB.SOL (2.5/0.5 MG) 3 ML NEB.SOLN INH SCH (13:17)
[2024-03-25] MEDS ORDERED: Acetaminophen IV 1 GM/100ML 1,000 MG/100 ML BAG IV PRN (21:38)
[2024-03-26 06:31] LABS: ABS Lymphocytes 0.3 10^3/uL (1.0-4.8); ABS Monocytes 1.3 10^3/uL (0.0-1.1); Hematocrit 33.7 % (38-53); Hemoglobin 11.2 g/dL (13.2-16.3); Lymphocyte % 1.7 %; Mean Corpuscular Hgb Conc 33.2 g/dL (31-36); Mean Corpuscular Volume 96.3 fL (80-97); Mean Platelet Volume 7.4 fL (7.5-11.2); Platelet Count 191 10^3/uL (150-450); Red Cell Distribution Width 15.2 % (12-17); White Blood Count 17.6 10^3/uL (3.6-10.2)
[2024-03-26 07:20] LABS: Calcium 8.2 mg/dL (8.6-10.3); Creatinine, Serum 0.73 mg/dL (0.67-1.17); Magnesium 2.3 mg/dL (1.9-2.7); Potassium 4.5 mmol/L (3.5-5.0); eGFR CKD-EPI 93.7 (>60)
[2024-03-26] MEDS: methylPREDNISolone SOD SUCC 40 mg/ml 1 ml VIAL IV SCH (09:45)
[2024-03-26 10:23] VITALS: BP 117/67
== END 2024-03-26 14:21 | disposition home or self-care (01) ==
LOC: ED 13:56 → EDHOLD 13:56 → SUATTDRO 21:28 → MEDTELE 23:21
PROVIDERS: ADMIT Hospitalist; ATTEND Student in an Organized Health Care Education/Training Program